=== PATIENT | female | born 1945 | race Caucasian/White ===

== ENCOUNTER → 2017-07-24 | Outpatient (CLI) | payer OTHER ==
[~2017-07-24] MED LIST: ALLERGY SHOTS; DICLOFENAC SODI75 M1 PO; IBUPROFEN 800800 M1 PO; LIPITOR20 MG PO; NABUMETONE 500500 M1 PO; NEURONTIN 300300 M1 PO; NEXIUM 40 MG CA40 M1 PO; SYMBICORT160 MCG/4. INH
== END ==
LOC: RAD 07-19 00:25
DX: Z12.31 Encounter for screening mammogram for malignant neoplasm of breast (principal)

== ENCOUNTER → 2018-07-24 | Outpatient (CLI) | payer OTHER | LOC: RAD 12:47 | DX: Z12.31 Encounter for screening mammogram for malignant neoplasm of breast (principal) ==

== ENCOUNTER → 2019-08-07 | Outpatient (CLI) | payer OTHER | LOC: RAD 07-25 09:49 → BC 10:36 | DX: Z12.31 Encounter for screening mammogram for malignant neoplasm of breast (principal) ==

== ENCOUNTER → 2019-11-12 | Outpatient (CLI) | payer OTHER ==
[~2019-11-12] VITALS: Ht 165.1 cm; Wt 65.8 kg
[~2019-11-12] MED LIST changes: +ADIPEX-P37.5 MG PO; +ADVAIR 250-501 EACH INH; +CELEBREX 200 M200 M1 PO; +OMEPRAZOLE 20 M20 M1 PO; +SINGULAIR 10 MG10 MG PO
[2019-11-12 14:47] VITALS: BP 133/89
--- NOTE | 2019-11-12 15:19 | NUR ---
Pain Clinic Assessment: 1. History of Osteoarthritis: Left Lower Extremity Left Upper Extremity Right Lower Extremity Right Upper Extremity * "EVERYWEHRE" History of Rheumatoid Arthritis: Not Applicable 2. Height: 5 ft. 5 in. 165.1 cm. Weight: 145.0 lb. oz. 65.772 kg. Patient's BMI: 24.1 3. Vital Signs: BP: 133/89 Pulse: 78 Resp: 14 Temp: 02 Sat: 100 ECG Mon: 4. Pain Intensity: "0 NOW, 10 AT TIMES." 5. Fall Risk: Dizziness: N Needs help standing or walking: N Fallen in the last 3 months: N Fall risk comments: 6. Patient on Blood Thinner: None 7. History of Hypertension: N 8. Opioid Therapy greater than 6 weeks: N Opiate Contract Signed: 9. Risk Assessment Tool Provided: 10. Functional Assessment Tool: 11. Recreational Drug Use: Never Drug Type: Tobacco Use: Never Smoker Tobacco Type: Amount or Packs/day: How Many Years: Alcohol Use: Yes Frequency: Weekly Quant: 2 BEERS
--- NOTE | 2019-11-18 09:19 | HPC ---
[facility] [place] [address] PAIN MANAGEMENT CONSULTATION Name: MURPHY MUSE Room #: REG JL [place].#: [id number] Admission: 11/12/19 Attend Phys: Hunter Tariq DO Discharge: Date of : 45 Report #: [id number] THIS REPORT FOR: cc: Heath Beltrán MD, Mark S. MD Johnson, James E. DO ~ DATE OF SERVICE: 11/12/2019 REFERRING PHYSICIAN: Heath Beltrán MD CHIEF COMPLAINT: Low back pain, left lower extremity pain with paresthesias. HISTORY OF PRESENT ILLNESS: As you know, the patient is a pleasant 74-year-old female referred to our service for suspected lumbar radiculopathy. The patient states her pain began way back in "1999." The patient denies injury or trauma that may have led to symptom development. She has "just been putting up with her pain" until just recently where her symptoms began to progress. She is now experiencing pain radiating down the leg. She was found to have changes of the lumbar spine at the L4-L5 level consistent with the bilateral nature of the patient's symptoms, left greater than right. She was referred to our clinic to discuss options for treatment. The patient indicates today the pain is periodic. She describes the pain as stabbing with intermittent numbness and tingling. Places current pain score anywhere from 0-10/10, daily average at 0-10/10, worst pain has been 10/10. The patient states that bending and ambulating tends to exacerbate symptoms, sitting tends to improve pain. She has been referred to our service to discuss treatment options for suspected lumbar radiculopathy. PAST MEDICAL HISTORY: 1. Hypothyroidism. 2. Dyslipidemia. 3. Gastroesophageal reflux disease. 4. Osteoarthritis. 5. Degenerative joint disease. PAST SURGICAL HISTORY: 1. Lumpectomy, 1999. 2. Rotator cuff repair, 2013. SOCIAL HISTORY: The patient reports she is a nonsmoker. She denies IV or illicit drug use. Admits to approximately 2 alcohol beverages per week. She is retired, retired years ago. She is unaccompanied at today's visit. She is not receiving workmen's compensation nor is she trying to obtain disability benefits. She is not in litigation in regards to pain. [address] [address] PAIN MANAGEMENT CONSULTATION Name: MURPHY MUSE [facility] [id number] Admission: 11/12/19 Attend Phys: Hunter Tariq DO Discharge: Date of : 45 Report #: [id number] REVIEW OF SYSTEMS: Positive for wearing corrective eyewear, glaucoma, hearing loss with tinnitus, chronic sinus problems with rhinitis, frequent and recurrent coughs, intrinsic lung disease, heat and cold intolerance. All other review of systems negative per 12-point review of systems, and those listed in history of present illness. Pain impact score is 32 of 70 indicating moderate interference of daily activities secondary to pain. ALLERGIES: CEFDINIR. CURRENT MEDICATIONS: Advair 250/50 one puff b.i.d., montelukast sodium 10 mg once a day, omeprazole 20 mg per day, atorvastatin 20 mg per day, diclofenac sodium 75 mg once a day. IMAGING: MRI lumbar spine obtained on 10/31/2019 shows marked left convexity of the lumbar spine involving lumbar disks and facets, very similar to findings from 2018. Central canal stenosis noted at L4-L5 with closure of the canal to 0.7 cm. There is severe to marked left lateral recess stenosis secondary to her marked convexity. There is marked left neural foraminal stenosis, which is stable at the L5-S1 level and moderate facet arthropathy noted at this L5 level as well. PQRS: The patient has known arthritic changes of the bilateral upper extremities involving the shoulders, elbows, bilateral knees and hips. No rheumatoid arthritis. She is placing current pain score anywhere from 0-10/10. She is not a fall risk, has not had a fall in last 3 months. She is not on blood thinners, but is treated for dyslipidemia. She is not on opioids, has a low opioid addiction potential. Pain impact score is 32/70, moderate interference of daily activities secondary to pain. PHYSICAL EXAMINATION: VITAL SIGNS: Blood pressure 133/89, pulse is 78, respiratory rate 14 and unlabored. The patient is 100% on room air. Height 5 feet 5 inches tall, weight 145 pounds, BMI calculated 24.1. GENERAL: Well-developed, well-nourished, well-hydrated 74-year-old female, appears stated age, pain is rated anywhere from 0-10/10. HEENT: Normocephalic, atraumatic. Pupils equal, round and reactive. Extraocular muscles are intact. NEUROLOGIC: Speech fluent. The patient deemed a good historian. LUNGS: Decreased breath sounds bilaterally. There is prolonged expiratory phase and some wheezing noted at the bases. CARDIOVASCULAR: Regular. No appreciable gallop, no rub. ABDOMEN: Soft, nontender. EXTREMITIES: Show no clubbing, no cyanosis, no edema. [facility] [address] [place] [address] PAIN MANAGEMENT CONSULTATION Name: MURPHY MUSE Room #: REG JL Curtis#: [id number] Admission: 11/12/19 Attend Phys: Hunter Tariq DO Discharge: Date of : 45 Report #: [id number] MUSCULOSKELETAL: Lower extremity strength equal and symmetrical 5/5, intact to light touch from L1 through S2 dermatomes. Seated straight leg raising negative. Supine straight leg raising positive on the left. Garett's test is negative. Modified Gaenslen's positive for axial low back pain. Ankle clonus negative. Babinski is negative. Lumbar provocation testing is met with a slight increase in axial back pain directly over the facet joints of the lower lumbar spine. ASSESSMENT: 1. Symptomatic lumbar radiculopathy. 2. Central canal stenosis of the lumbar spine. 3. Displacement of lumbar intervertebral disk with radiculopathy. 4. Lumbosacral spondylosis with radiculopathy. 5. Facet arthropathy of the lumbar spine. 6. Neural foraminal stenosis of the lumbar spine. 7. Chronic intractable pain. PLAN: 1. The patient has been referred to our service to discuss treatment options for suspected lumbar radiculopathy. The patient and I discussed at length today the treatment options for lumbar radicular symptoms due to central canal stenosis. She does have foraminal stenosis noted at 2 levels, but the bilateral nature of her symptoms would be more from the central canal and not from the neural foraminal stenosis noted only on the left side. We discussed with the patient the treatment options today and the following was discussed with the patient. We discussed physical therapy, stretching exercises, core strengthening and a concerted effort at weight loss. We discussed medication management with the addition of neuropathic pain medications to address pain issues. We discussed lumbar epidural injection under fluoroscopic guidance for which the patient was referred to our clinic. We also discussed spinal cord stimulator therapy and ultimately surgical decompression. After reviewing the risks and benefits of all proposed treatment options, the patient chose to move forward with the lumbar epidural injection under fluoroscopic guidance. Due to third republican payer restrictions, authorization has to be obtained before the patient could undergo a lumbar epidural injection. Authorization could take anywhere from 4-7 working days. Again, we will be getting this process immediately. Once this authorization has been obtained, we will have the patient return to undergo the first in a series of requested epidural injections. 2. No medication changes made at today's visit. The patient will continue current medical therapy as previously prescribed. 3. We will be sending the patient for physical therapy 3 times a week for 6 weeks. We feel this would be quite beneficial for the patient for strengthening [address] [address] PAIN MANAGEMENT CONSULTATION Name: MURPHY MUSE Room #: REG CLI Kirsten#: [id number] Admission: 11/12/19 Attend Phys: Hunter Tariq DO Discharge: Date of : 45 Report #: [id number] and balance. She will begin this process at her earliest convenience. 4. We will see the patient back in followup visit once we have achieved authorization for the patient to undergo a lumbar epidural injection under fluoroscopic guidance at the L5-S1 level to address the L4-L5 central canal stenosis. 5. We wish to thank Dr. Heath Beltrán for the opportunity to see this patient in consultation. We will keep you apprised of her response to treatment as we address lumbar radicular symptoms secondary to central canal stenosis. Again, we wish to thank you for the opportunity to see the patient in consultation. <ELECTRONICALLY SIGNED> By: Hunter Tariq DO 11/18/19 0919 1105 1227 Hunter Tariq DO /nt
== END ==
LOC: PAIN 07:02
PROVIDERS: ATTEND Anesthesiology Pain Medicine
DX: M54.5 Low back pain (principal); M79.605 Pain in left leg; R20.2 Paresthesia of skin; E03.9 Hypothyroidism, unspecified; E78.5 Hyperlipidemia, unspecified; K21.9 Gastro-esophageal reflux disease without esophagitis; M19.90 Unspecified osteoarthritis, unspecified site; Z88.5 Allergy status to narcotic agent; Z79.899 Other long term (current) drug therapy

== ENCOUNTER → 2019-11-18 | Outpatient (CLI) | payer OTHER ==
[~2019-11-18] VITALS: Ht 165.1 cm; Wt 65.8 kg
[2019-11-18 14:01] VITALS: BP 141/94
--- NOTE | 2019-11-18 14:13 | NUR ---
Pain Clinic Assessment: 1. History of Osteoarthritis: Left Lower Extremity Left Upper Extremity Right Lower Extremity Right Upper Extremity * "EVERYWEHRE" History of Rheumatoid Arthritis: Not Applicable 2. Height: 5 ft. 5 in. 165.1 cm. Weight: 145.0 lb. oz. 65.772 kg. Patient's BMI: 24.1 3. Vital Signs: BP: 141/94 Pulse: 81 Resp: 14 Temp: 02 Sat: 98 ECG Mon: 4. Pain Intensity: 1 5. Fall Risk: Dizziness: N Needs help standing or walking: N Fallen in the last 3 months: N Fall risk comments: 6. Patient on Blood Thinner: None 7. History of Hypertension: N 8. Opioid Therapy greater than 6 weeks: N Opiate Contract Signed: 9. Risk Assessment Tool Provided: 10. Functional Assessment Tool: 11. Recreational Drug Use: Never Drug Type: Tobacco Use: Never Smoker Tobacco Type: Amount or Packs/day: How Many Years: Alcohol Use: Yes Frequency: Quant:
--- NOTE | 2019-11-19 11:38 | HPC ---
[facility] [place] [address] [address] [place] [address] PAIN MANAGEMENT CONSULTATION Name: MURPHY MUSE Room #: REG JL AguilarLissyTimLissy#: [id number] Admission: 11/18/19 Attend Phys: Hunter Tariq DO Discharge: Date of : 45 Report #: [id number] THIS REPORT FOR: cc: Heath Beltrán MD, Mark S. MD Johnson, James E. DO ~ DATE OF SERVICE: 11/18/2019 REFERRING PHYSICIAN: Dr. Heath Beltrán CHIEF COMPLAINT: Low back pain, left lower extremity pain with paresthesias. HISTORY OF PRESENT ILLNESS: As you know, the patient is a very pleasant 74-year-old female referred to our service for suspected lumbar radiculopathy. She was seen in consultation per the request of Dr. Heath Beltrán on 11/12/2019. At that appointment she was diagnosed with symptomatic lumbar radiculopathy secondary to central canal stenosis of the lumbar spine. She was advised of the treatment options we have available for lumbar radiculopathy including physical therapy, medication management, epidural injections, spinal cord stimulator therapy and surgical options. After reviewing risks and benefits of all proposed treatment options, the patient chose to begin with an epidural injection under fluoroscopic guidance. She also wishes to start physical therapy. She was established today's appointment to undergo the first in a series of lumbar epidural injections as authorization had to be obtained before the patient could undergo a lumbar epidural injection. We have received this authorization and the patient returns to undergo the epidural injection. She has not started her physical therapy to date, but has plans to start this . She returns today for the first in the series of lumbar epidural injections. ALLERGIES: CEFDINIR. CURRENT MEDICATIONS: Advair, montelukast sodium, omeprazole, atorvastatin, diclofenac. SOCIAL HISTORY: The patient reports she is a nonsmoker. Denies IV or illicit drug use. Admits to approximately 2 alcohol beverages per week. She is retired, retired years ago, unaccompanied at today's visit. IMAGING: There is no new imaging available. PQRS: The patient has known arthritic changes of the bilateral upper extremities involving the shoulders, elbows and cervical spine. She also suffers from osteoarthritic changes of bilateral knees, bilateral hips and lumbar spine. She has no diagnosis of rheumatoid arthritis[place] [address] PAIN MANAGEMENT CONSULTATION Name: MURPHY MUSE Room #: REG [facility]#: [id number] Admission: 11/18/19 Attend Phys: Hunter Tariq DO Discharge: Date of : 45 Report #: [id number] pain intensity today at around 1/10. She is not a fall risk, has not had a fall in last 3 months. She is not on blood thinners nor is she treated for hypertension. She is not on any opioids and has an extremely low opioid addiction potential based on our assessment tool. Pain impact is 32/70, moderate interference of daily activities secondary to pain. PHYSICAL EXAMINATION: VITAL SIGNS: Blood pressure 141/94, pulse 81, respiratory rate 14 and unlabored. The patient is 98% on room air. Height 5 feet 5 inches tall, weight 145 pounds, BMI calculated 24.1. GENERAL: Well-developed, well-nourished, well-hydrated 74-year-old scoliotic female appearing stated age, placing current pain score 1/10. HEENT: Normocephalic, atraumatic. Pupils equal, round and reactive. EXTREMITIES: Show no clubbing, no cyanosis, no edema. MUSCULOSKELETAL: Lower extremity strength appears equal and symmetrical 5/5, intact to light touch from L1 through S2 dermatomes. Seated straight leg raising negative. Supine straight leg raising remains positive left. ASSESSMENT: 1. Symptomatic lumbar radiculopathy. 2. Central canal stenosis of lumbar spine. 3. Displacement of lumbar intervertebral disk with radiculopathy. 4. Lumbosacral spondylosis with radiculopathy. 5. Neural foraminal stenosis of lumbar spine. 6. Facet arthropathy of the lumbar spine. 7. Chronic intractable pain. PLAN: 1. The patient has returned today in followup visit having received authorization to undergo the first in a series of lumbar epidural injections under fluoroscopic guidance to address lumbar radicular pain. The patient has been advised of the risks and the benefits of this procedure. These risks include but are not necessarily limited to bleeding, bruising, infection, worsening pain, no relief of pain, also risk of temporary or permanent muscle weakness, temporary or permanent nerve damage, possible paralysis and . The patient states she understood and wished to proceed. 2. No medication changes made at today's visit. The patient will continue current medical therapy as previously prescribed. 3. We will see the patient back in followup visit on an as needed basis for possible next in the series of lumbar epidural injections. We have made the patient an appointment back in 30 days to discuss this further. 4. The patient will start physical therapy starting of this week. She will continue physical therapy 3 times a week for at least 4 weeks if not, possibly up to 6 weeks. PROCEDURE NOTE: [address] [address] PAIN MANAGEMENT CONSULTATION Name: MURPHY MUSE Room #: REG CLKeshia Curtis#: [id number] Admission: 11/18/19 Attend Phys: Hunter Tariq DO Discharge: Date of : 45 Report #: [id number] DESCRIPTION OF PROCEDURE: L5-S1 left parasagittal epidural steroid injection under fluoroscopic guidance. This is the first procedure of the first series that the patient is undergoing. After obtaining written consent, the patient was taken back to the fluoroscopy suite, placed in a prone position with pillow under the abdomen to decrease lumbar lordosis. The skin overlying the lumbosacral area was then prepped and draped in aseptic fashion. The L5-S1 vertebral interspace was then identified by AP fluoroscopy. The skin and subcutaneous tissue overlying the target site of injection was anesthetized with 3 mL 1% lidocaine. A 20-gauge 3-1/2 inch Tuohy needle was then advanced under fluoroscopic guidance towards the epidural space using a left parasagittal approach approach. The epidural space was identified using loss of resistance to air technique. After negative aspiration for heme or cerebrospinal fluid, a total of 1 mL of Omnipaque was injected. A lumbar epidurogram was confirmed using both AP and lateral fluoroscopy. After negative aspiration for heme or cerebrospinal fluid, 5 mL of a solution containing 2 mL 40 mg per mL, 80 mg total triamcinolone along with 3 mL of lidocaine 1% was injected in increments. Contrast spread was noted in posterior epidural space. The needle was then retracted approximately half way and needle tract flushed with of 1 mL of 1% lidocaine. Needle was then removed. There were no apparent sensory or motor deficits in the lower extremity following the procedure. A sterile bandage was placed over the injection site. The heart rate, pulse, oximetry and blood pressure were continuously monitored after the procedure. There were no apparent complications. The patient tolerated the procedure well and was carefully escorted to the recovery room in stable condition. There were no apparent complications. After meeting discharge criteria, the patient was then discharged home. <ELECTRONICALLY SIGNED> By: Hunter Tariq DO 11/19/19 1138 1515 1734 Hunter Tariq DO /nt
== END ==
LOC: PAIN 06:52
PROVIDERS: ATTEND Anesthesiology Pain Medicine
DX: M51.16 Intervertebral disc disorders with radiculopathy, lumbar region (principal); M47.27 Other spondylosis with radiculopathy, lumbosacral region; M47.26 Other spondylosis with radiculopathy, lumbar region; M48.061 Spinal stenosis, lumbar region without neurogenic claudication; G89.29 Other chronic pain; Z98.890 Other specified postprocedural states; Z79.899 Other long term (current) drug therapy; Z88.8 Allergy status to other drugs, medicaments and biological substances

== ENCOUNTER → 2020-08-03 | Outpatient (CLI) | payer OTHER | LOC: RAD 08:52 | PROVIDERS: ATTEND Pediatrics | DX: J43.2 Centrilobular emphysema (principal); M41.85 Other forms of scoliosis, thoracolumbar region ==

== ENCOUNTER → 2020-08-11 | Outpatient (CLI) | payer OTHER | LOC: BC 11:57 | PROVIDERS: ATTEND Internal Medicine Rheumatology | DX: Z12.31 Encounter for screening mammogram for malignant neoplasm of breast (principal) ==

== ENCOUNTER → 2020-09-17 | Outpatient (CLI) | payer OTHER ==
--- NOTE | ~2020-09-17 | PFR/MVV ---
[facility] [place] [address] PULMONARY FUNCTION MVV/REPORT Name: MURPHY MUSE Room #: REG [facility].#: [id number] Admission: 09/17/20 Attend Phys: Chicho Graf MD Discharge: Date of : 45 Report #: [id number] THIS REPORT FOR: //name// >> SPIROMETRY: (BTPS) Height: in cm Weight: lbs kg Exam Date: PRE-RX POST-RX PRED BEST %PRED BEST %PRED %CHG FVC LITERS . . . . . . FEV1 LITERS . . . . . . FEV1/FVC % . . . . . . KND42-92% L/Sec . . . . . . PEF L/SEC . . . . . . FEF50/FIF50 UNITLESS . . . . . . MVV L/Min . . . f 1/Min . . . >> LUNG VOLUMES: (BTPS) PRE-RX POST-RX PRED AVG %PRED AVG %PRED %CHG VC Liters . . . . . . TLC Liters . . . . . . RV Liters . . . . . . RV/TLC % . . . . . . FRC PL Liters . . . . . . FRC N2 Liters . . . . . . ERV Liters . . . . . . IC Liters . . . . . . >> DIFFUSION: DLCO ml/Min/mmHg . . . . . . DL Marcial ml/Min/mmHg . . . . . . DLCO/VA ml/Min/mmHg . . . . . . VA Liters . . . . . . COMMENTS: COMMENTS: >> RESISTANCE: [facility] [address] [place] [address] PULMONARY FUNCTION MVV/REPORT Name: MURPHY MUSE Room #: REG [facility]#: [id number] Admission: 09/17/20 Attend Phys: Chicho Graf MD Discharge: Date of : 45 Report #: [id number] PRE-RX PRED AVG %PRED Raw Total cmH20/L/Sec . . . Raw Insp cmH20/L/Sec . . . Raw Exp cmH20/L/Sec . . . Raw cmH20/L/Sec . . . Gaw L/Sec/cmH20 . . . sRaw cmH20 Sec . . . sGaw l/cmH20 Sec . . . Vtq Liters . . . # = OUTSIDE 95% CONFIDENCE INTERVAL CALIBRATION: PRED: 3.00 ACTUAL: EXP 3.01 INSP 3.02 [facility]-OL03-02 [facility] N-1804-4 >> INTERPRETATION/IMPRESSION: DATE OF SERVICE: 09/18/2020 PULMONARY FUNCTION STUDY SPIROMETRY: FEV1 is 2.42 liters (123%), FVC is 3.19 liters (113%), FEV1/FVC ratio is 76%. Postbronchodilator therapy with no significant response. LUNG VOLUMES: Total lung capacity is 5.24 liters (105%). Diffusing capacity is 121%. IMPRESSION: Pulmonary function studies are consistent with normal pulmonary flow. There is no obstructive airflow defect. There is no significant response to bronchodilator therapy. Diffusing capacity is slightly increased and normal. By: Chicho Graf MD /nt
== END ==
LOC: PUL 10:54
PROVIDERS: ATTEND Pediatrics
DX: R05 Cough (principal); Z20.822 Contact with and (suspected) exposure to COVID-19

== ENCOUNTER → 2021-01-11 | Outpatient (CLI) | payer OTHER ==
[~2021-01-11] VITALS: Ht 165.1 cm; Wt 70.9 kg
[~2021-01-11] MED LIST changes: +[UNRECOGNIZED DRUG - OTHER]
[2021-01-11 12:45] VITALS: BP 127/88
--- NOTE | 2021-01-11 12:58 | NUR ---
Pain Clinic Assessment: 1. History of Osteoarthritis: Left Lower Extremity Left Upper Extremity Right Lower Extremity Right Upper Extremity * "EVERYWEHRE" History of Rheumatoid Arthritis: Not Applicable 2. Height: 5 ft. 5 in. 165.1 cm. Weight: 156.2 lb. oz. 70.852 kg. Patient's BMI: 26.0 3. Vital Signs: BP: 127/88 Pulse: 82 Resp: 16 Temp: 02 Sat: 99 ECG Mon: 4. Pain Intensity: 1-2 5. Fall Risk: Dizziness: N Needs help standing or walking: N Fallen in the last 3 months: N Fall risk comments: 6. Patient on Blood Thinner: None 7. History of Hypertension: N 8. Opioid Therapy greater than 6 weeks: N Opiate Contract Signed: 9. Risk Assessment Tool Provided: 10. Functional Assessment Tool: 11. Recreational Drug Use: Never Drug Type: Tobacco Use: Never Smoker Tobacco Type: Amount or Packs/day: How Many Years: Alcohol Use: No Frequency: Quant:
--- NOTE | 2021-01-19 09:51 | HPC ---
[facility] [place] [address] PAIN MANAGEMENT CONSULTATION Name: MURPHY MUSE Room #: REG [facility] [place].#: [id number] Admission: 01/11/21 Attend Phys: Hunter Tairq DO Discharge: Date of : 45 Report #: [id number] THIS REPORT FOR: cc: Heath Beltrán MD, Mark S. MD Johnson, James E. DO ~ cc: Heath Beltrán MD DATE OF SERVICE: 01/11/2021 DATE OF SERVICE: 01/11/2021. CHIEF COMPLAINT: Low back pain, bilateral lower extremity pain with paresthesias. HISTORY OF PRESENT ILLNESS: As you know, the patient is a 75-year-old female who reports longstanding history of low back pain, left lower extremity pain with paresthesias with intermittent right lower extremity pain with paresthesias. The patient states the pain has been chronic for years. She describes the pain as numbness, tingling, stabbing and constant sensation. She describes pain at a level of about 2/10 at present. Pain is exacerbated with bending, movement of any kind, standing for long periods of time, sitting and repositioning tends to be the only thing that improves her symptoms. She did undergo a lumbar epidural injection in October 2019 per the request of the referring physician, Dr. Beltrán reporting improvement in symptoms of greater than 100%, lasting for months. She returns today in followup visit to begin the process of authorization to undergo the next in the series of lumbar epidural injections to address lumbar radicular pain. The patient reports no injury or trauma that led to symptom reoccurrence. She is not on any medications that would preclude the patient from undergoing an epidural injection. ALLERGIES: CEFDINIR. CURRENT MEDICATIONS: Celecoxib 200 mg twice a day, omeprazole 20 mg once a day, atorvastatin 20 mg once a day, montelukast sodium 10 mg once a day. SOCIAL HISTORY: The patient is a nonsmoker. Denies IV or illicit drug use. Admits approximately 2 alcohol beverages per week. She is retired, retired years ago, unaccompanied at today's visit. IMAGING: No new imaging available. PQRS: The patient has known arthritic changes of the upper extremities including the shoulders, elbows, cervical spine and hands. Also, lumbar arthritic changes, bilateral knee arthritic changes and bilateral hip arthritic changes. She does not carry a diagnosis of rheumatoid arthritis. She is placing current pain score at about 1-2/10. She is not a fall risk, has not had [address] [address] PAIN MANAGEMENT CONSULTATION Name: MURPHY MUSE Room #: REG [facility].#: [id number] Admission: 01/11/21 Attend Phys: Hunter Tariq DO Discharge: Date of : 45 Report #: [id number] a fall in last 3 months. She is not on blood thinners nor is she treated for hypertension. She is not on chronic opioids, has a low opiate addiction potential. Pain impact is 32/70, moderate interference of daily activities secondary to pain. PHYSICAL EXAMINATION: VITAL SIGNS: Blood pressure 141/94, pulse 81, respiratory rate 14 and unlabored. The patient 98% on room air. Height 5 feet 5 inches tall, weight 145 pounds, BMI calculated 24.1. GENERAL: Well-developed, well-nourished, well-hydrated 75-year-old female appearing stated age, pain is rated today at around 1-2/10. HEENT: Normocephalic, atraumatic. Pupils are round and responsive. She is wearing a mask in compliance with COVID-19 regulations. EXTREMITIES: Show no clubbing, no cyanosis. No appreciable edema. MUSCULOSKELETAL: Lower extremity strength remains symmetrical with decondition 5/5 strength. Intact to light touch from L1 through S2 dermatomes. Seated straight leg raising negative. Supine straight leg raising is positive on the left. Garett's test is negative. Modified Gaenslen's positive for axial back pain. Gait mildly antalgic favoring left lower extremity over right. ASSESSMENT: 1. Symptomatic lumbar radiculopathy. 2. Severe central canal stenosis of lumbar spine. 3. Displacement of lumbar intervertebral disk with radiculopathy. 4. Neural foraminal stenosis of lumbar spine. 5. Lumbosacral spondylosis with radiculopathy. 6. Facet arthropathy, lumbar spine. 7. Chronic intractable pain. PLAN: 1. The patient returns today in followup visit indicating good efficacy with the epidural injection provided on 11/18/2019. She reports near 100% improvement in overall pain lasting for months. She has delayed her return visit as concerns of COVID-19 virus escalated over the last year. She is now comfortable to return to our clinic. Returning today to begin the authorization process to undergo next in the series of lumbar epidural injections. I did advise the patient that her findings are consistent with lumbar radiculopathy. The fact that she received excellent benefit with a lumbar epidural injection in the past would make her an excellent candidate to continue this treatment option. She is agreeable to undergo a lumbar epidural injection. The patient was advised due to third republican payer restrictions authorization would have to be obtained for the patient to undergo a lumbar epidural injection. Authorization could take anywhere from 4-7 working days, will begin that process immediately. Once this authorization has been completed, we will have the patient return to undergo lumbar epidural injection under fluoroscopic [facility] [address] [place] [address] PAIN MANAGEMENT CONSULTATION Name: MURPHY MUSE [id number] Admission: 01/11/21 Attend Phys: Hunter Tariq DO Discharge: Date of : 45 Report #: [id number] guidance. 2. No medication changes made at today's visit. The patient will continue current medical therapy as prior prescribed. 3. We plan to see the patient back in followup visit to undergo lumbar epidural injection under fluoroscopic guidance once we have achieved authorization for the patient to do so. <ELECTRONICALLY SIGNED> By: Hunter Tariq DO 01/19/21 0951 [id number] Hunter Tariq DO /nt
== END | disposition home or self-care (01) ==
LOC: PAIN 12:05
PROVIDERS: ATTEND Anesthesiology Pain Medicine
DX: M51.16 Intervertebral disc disorders with radiculopathy, lumbar region (principal); M48.061 Spinal stenosis, lumbar region without neurogenic claudication; M47.27 Other spondylosis with radiculopathy, lumbosacral region; M47.26 Other spondylosis with radiculopathy, lumbar region; G89.29 Other chronic pain; M19.90 Unspecified osteoarthritis, unspecified site; Z98.890 Other specified postprocedural states; Z79.899 Other long term (current) drug therapy; Z88.8 Allergy status to other drugs, medicaments and biological substances

== ENCOUNTER → 2021-01-25 | Outpatient (CLI) | payer OTHER ==
[~2021-01-25] VITALS: Ht 165.1 cm; Wt 72.9 kg
[2021-01-25 08:42] VITALS: BP 145/88
--- NOTE | 2021-01-25 08:57 | NUR ---
Pain Clinic Assessment: 1. History of Osteoarthritis: Left Lower Extremity Left Upper Extremity Right Lower Extremity Right Upper Extremity * "EVERYWEHRE" History of Rheumatoid Arthritis: Not Applicable 2. Height: 5 ft. 5 in. 165.1 cm. Weight: 160.8 lb. oz. 72.938 kg. Patient's BMI: 26.8 3. Vital Signs: BP: 145/88 Pulse: 77 Resp: 16 Temp: 02 Sat: 98 ECG Mon: 4. Pain Intensity: 9 W/ACTIVITY 5. Fall Risk: Dizziness: N Needs help standing or walking: N Fallen in the last 3 months: N Fall risk comments: 6. Patient on Blood Thinner: None 7. History of Hypertension: N 8. Opioid Therapy greater than 6 weeks: N Opiate Contract Signed: 9. Risk Assessment Tool Provided: XAVIER 10. Functional Assessment Tool: 11. Recreational Drug Use: Never Drug Type: Tobacco Use: Never Smoker Tobacco Type: Amount or Packs/day: How Many Years: Alcohol Use: No Frequency: Quant:
--- NOTE | 2021-02-01 10:15 | HPC ---
[facility] [place] [address] PAIN MANAGEMENT CONSULTATION Name: MURPHY MUSE Room #: [facility] [id number] Admission: 01/25/21 Attend Phys: Hunter Tariq DO Discharge: Date of : 45 Report #: [id number] THIS REPORT FOR: cc: Heath Beltrán MD, Mark S. MD Johnson, James E. DO ~ cc: Heath Beltrán MD DATE OF SERVICE: 01/25/2021 REFERRING PHYSICIAN: Dr. Heath Beltrán. CHIEF COMPLAINT: Low back pain, left lower extremity pain with paresthesias. HISTORY OF PRESENT ILLNESS: As you know, the patient is a very pleasant 75-year-old female referred to our service for suspected lumbar radiculopathy. We saw the patient in consultation per the request of Dr. Heath Beltrán on 11/12/2019 with diagnosis of lumbar radiculopathy secondary to central canal stenosis. We discussed the treatment options at that visit and the patient ultimately underwent an epidural injection on 11/18/2019. She was lost to followup visit until her return on 01/11/2021 where she was complaining of recurrence of symptoms. We have obtained authorization for the patient to undergo the next in the series of epidural injections today. She denies injury or trauma or any changes in medication management since our last visit that would preclude her from undergoing a lumbar epidural injection today. ALLERGIES: CEFDINIR. CURRENT MEDICATIONS: Advair, montelukast sodium, omeprazole, atorvastatin and diclofenac. SOCIAL HISTORY: The patient denies tobacco use. Denies IV or illicit drug use. Admits to 2 alcohol beverages per week. She is retired, retired years ago, unaccompanied today. IMAGING: No new imaging available. PQRS: The patient has known arthritic changes of the cervical spine, bilateral shoulders, bilateral elbows and hands. Also, lumbar spine, bilateral hips and knees. She is not taking no treatment for rheumatoid arthritis. She is placing pain intensity today at 9/10. She is not a fall risk, has not had a fall in last 3 months. She is not on blood thinners nor she reportedly on medication for hypertension. She is not on opioids, has a low opioid addiction potential based on our assessment tool. Pain impact is moderate at 32 of 70. PHYSICAL EXAMINATION: VITAL SIGNS: Blood pressure 145/88, pulse is 77, respiratory rate 16 and [facility] [address] [place] [address] PAIN MANAGEMENT CONSULTATION Name: MURPHY MUSE Room #: REG [facility]#: [id number] Admission: 01/25/21 Attend Phys: Hunter Tariq DO Discharge: Date of : 45 Report #: [id number] unlabored. The patient is 98% on room air. Height 5 feet 5 inches tall, weight 160.8 pounds, BMI calculated 26.8. GENERAL: Well-developed, well-nourished, well-hydrated 75-year-old female appearing stated age, pain is rated anywhere from 9-10/10. HEENT: normocephalic, atraumatic. Pupils equal, round and responsive. She is wearing a mask in compliance with COVID-19 regulations. EXTREMITIES: Show no clubbing, no cyanosis and no appreciable edema. MUSCULOSKELETAL: Lower extremity strength is symmetrical again today 5/5 and intact to light touch from L1 through S2 dermatomes. Seated straight leg raising negative. Supine straight leg raising is positive on the left at approximately 60-degree angle. Ankle clonus negative. Babinski is negative. ASSESSMENT: 1. Symptomatic lumbar radiculopathy. 2. Central canal stenosis of lumbar spine. 3. Displacement of lumbar intervertebral disk with radiculopathy. 4. Lumbosacral spondylosis with radiculopathy. 5. Neural foraminal stenosis of lumbar spine. 6. Facet arthropathy, lumbar spine. 7. Chronic intractable pain. PLAN: 1. The patient returns today in followup visit requesting to undergo lumbar epidural injection under fluoroscopic guidance to address her 9/10 pain. We have received authorization for the patient to undergo the procedure. She has been advised of the risks and the benefits of this procedure. She states she understood and wished to proceed. 2. No medication changes made at today's visit. The patient will continue current medical therapy as prior prescribed. 3. We plan to see the patient back in followup visit on an as needed basis for the next in the series of epidural injections. We are hopeful the patient will once again see good and prolonged benefit with the epidural injection provided today. PROCEDURE NOTE DESCRIPTION OF PROCEDURE: L5-S1 left parasagittal epidural steroid injection under fluoroscopic guidance. After obtaining written consent, the patient was taken back to fluoroscopy suite, placed in prone position with pillow under abdomen to decrease lumbar lordosis. Skin overlying lumbosacral area prepped and draped in aseptic fashion. The L5-S1 vertebral interspace identified by AP fluoroscopy. Skin and subcutaneous tissue overlying target site injection anesthetized with 3 mL of 1% lidocaine. [address] [address] PAIN MANAGEMENT CONSULTATION Name: MURPHY MUSE Room #: REG [facility] [place]#: [id number] Admission: 01/25/21 Attend Phys: Hunter Tariq DO Discharge: Date of : 45 Report #: [id number] A 20 gauge 3-1/2 inch Tuohy needle advanced under fluoroscopic guidance towards the epidural space using a left parasagittal approach. Epidural space identified using loss of resistance to air technique. After negative aspiration for heme or cerebrospinal fluid, 1 mL of Omnipaque injected. Lumbar epidurogram was confirmed using both AP and lateral fluoroscopy. After negative aspiration for heme or cerebrospinal fluid, 5 mL solution containing 2 mL 40 mg per mL and 80 mg total triamcinolone along with 3 mL of lidocaine, 1% injected slowly. Needle retracted custodial flushed with 1 mL of 1% lidocaine, then removed. Sterile bandage placed over injection site. No new motor deficits present in lower extremity following procedure. The patient tolerated the procedure well, carefully escorted to recovery room in stable condition. No apparent complications. After meeting discharge criteria, the patient is discharged home. <ELECTRONICALLY SIGNED> By: Hunter Tariq DO 02/01/21 1015 [id number] [id number] Hunter Tariq DO /nt
== END | disposition home or self-care (01) ==
LOC: PAIN 08:01
PROVIDERS: ATTEND Anesthesiology Pain Medicine
DX: M51.16 Intervertebral disc disorders with radiculopathy, lumbar region (principal); M47.27 Other spondylosis with radiculopathy, lumbosacral region; M47.26 Other spondylosis with radiculopathy, lumbar region; M48.061 Spinal stenosis, lumbar region without neurogenic claudication; G89.29 Other chronic pain; M19.90 Unspecified osteoarthritis, unspecified site; Z98.890 Other specified postprocedural states; Z79.899 Other long term (current) drug therapy; Z88.8 Allergy status to other drugs, medicaments and biological substances

== ENCOUNTER → 2021-04-07 | Outpatient (CLI) | payer OTHER | LOC: RAD 08:26 | PROVIDERS: ATTEND Pediatrics | DX: U07.1 COVID-19 (principal); R06.02 Shortness of breath ==

== ENCOUNTER → 2021-05-03 | Outpatient (CLI) | payer OTHER ==
[~2021-05-03] VITALS: Ht 165.1 cm; Wt 74.4 kg
[2021-05-03 10:27] VITALS: BP 149/84
--- NOTE | 2021-05-03 10:37 | NUR ---
Pain Clinic Assessment: 1. History of Osteoarthritis: Left Lower Extremity Left Upper Extremity Right Lower Extremity Right Upper Extremity * "EVERYWEHRE" History of Rheumatoid Arthritis: Not Applicable 2. Height: 5 ft. 5 in. 165.1 cm. Weight: 164.0 lb. oz. 74.390 kg. Patient's BMI: 27.3 3. Vital Signs: BP: 149/84 Pulse: 86 Resp: 14 Temp: 02 Sat: 98 ECG Mon: 4. Pain Intensity: 10 5. Fall Risk: Dizziness: N Needs help standing or walking: N Fallen in the last 3 months: N Fall risk comments: 6. Patient on Blood Thinner: None 7. History of Hypertension: N 8. Opioid Therapy greater than 6 weeks: N Opiate Contract Signed: 9. Risk Assessment Tool Provided: LOW 10. Functional Assessment Tool: 11. Recreational Drug Use: Never Drug Type: Tobacco Use: Never Smoker Tobacco Type: Amount or Packs/day: How Many Years: Alcohol Use: Yes Frequency: Special Occasions Quant: 1-2
--- NOTE | 2021-05-04 08:11 | HPC ---
[facility] [place] [address] PAIN MANAGEMENT CONSULTATION Name: MURPHY MUSE Room #: REG [facility] [place].#: [id number] Admission: 05/03/21 Attend Phys: Hunter Tariq DO Discharge: Date of : 45 Report #: [id number] THIS REPORT FOR: cc: Heath Beltrán MD, Mark S. MD Johnson, James E. DO ~ cc: Heath Beltrán MD DATE OF SERVICE: 05/03/2021 REFERRING PHYSICIAN: Dr. Heath Beltrán CHIEF COMPLAINT: Low back pain, left lower extremity pain with paresthesias. HISTORY OF PRESENT ILLNESS: As you know, the patient is a very pleasant 76-year-old female referred to our service for suspected lumbar radiculopathy. We saw the patient in consultation at the request of Dr. Heath Beltrán on 11/12/2019, diagnosed with lumbar radiculopathy secondary to central canal stenosis. We discussed treatment options, the patient chose to begin with epidural injections. She underwent an epidural injection on 11/18/2019 with good benefit. We saw the patient back again in 12/2020 where she underwent the second in the series of lumbar epidural injections, once again excellent benefit. The patient reports 80% improvement in overall pain with that injection. She returns today in followup visit to begin the authorization process to undergo the next in the series of lumbar epidural injections to address recurrent pain for which she places pain today at 10/10. The patient denies injury or trauma that may have led to symptom reoccurrence. She denies any changes in medication management that would preclude her from undergoing an injection as quickly as possible. The patient reports pain begins in the low back, radiates to the left lower extremity. She has tried [id number] medications, rest, relaxation, with this recurrence of symptoms, this provided no benefit. She has returned today to begin the authorization process to undergo next in the series of lumbar epidural injections. ALLERGIES: CEFDINIR. CURRENT MEDICATIONS: Brexin 1 inhaled twice a day, Celecoxib 200 mg twice a day, omeprazole 20 mg once a day, atorvastatin 20 mg once a day. SOCIAL HISTORY: The patient denies tobacco use. Denies IV or illicit drug use. Admits to 2 alcohol beverages per week. She is retired, retired years ago, unaccompanied today. IMAGING: No new imaging available. PQRS: The patient has known arthritic changes of the cervical spine, bilateral shoulders, bilateral elbows and hands and lumbar spine, bilateral hips and [address] [address] PAIN MANAGEMENT CONSULTATION Name: MURPHY MUSE Room #: REG [facility].#: [id number] Admission: 05/03/21 Attend Phys: Hunter Tariq DO Discharge: Date of : 45 Report #: [id number] knees. No rheumatoid arthritis. The patient is placing current pain score at a 10/10. She is not a fall risk, has not had a fall in last 3 months. She is not on blood thinners nor is she treated for hypertension. She is on no opioids, but has a low opioid addiction potential based on assessment tool. Pain impact is 32 of 70, moderate interference of daily activities secondary to pain. PHYSICAL EXAMINATION: VITAL SIGNS: Blood pressure 149/84, pulse 86, respiratory rate 14 and unlabored. The patient 98% on room air. Height 5 feet 5 inches tall, weight 164 pounds, BMI calculated 27.3. GENERAL: Well-developed, well-nourished, well-hydrated 76-year-old female appearing stated age, pain is rated today 10/10. HEENT: Normocephalic, atraumatic. Pupils equal, round and responsive. Speech is fluent. She is wearing a mask in compliance with COVID-19 regulations and hospital policies. EXTREMITIES: Show no clubbing, no cyanosis. No appreciable edema. MUSCULOSKELETAL: Lower extremity strength is symmetrical again today 5/5. Seated straight leg raising is negative. Supine straight leg raising remains positive on the left. Garett's test is negative. Gait is antalgic favoring left lower extremity over right mildly. Ankle clonus negative. Babinski is negative. Deep tendon reflexes are symmetrical at patella and Achilles 1+/4. ASSESSMENT: 1. Symptomatic lumbar radiculopathy. 2. Central canal stenosis of lumbar spine. 3. Displacement of lumbar intervertebral disk with radiculopathy. 4. Lumbosacral spondylosis with radiculopathy. 5. Neural foraminal stenosis of lumbar spine. 6. Facet arthropathy of lumbar spine. 7. Chronic intractable pain. PLAN: 1. The patient returns today in followup visit requesting to undergo the next in the series of lumbar epidural injections to address recurrent lumbar radicular symptoms. The patient reported excellent benefit with previous injection that has provided about 80% improvement in overall pain until just recently where she has had a slow and progressive return of symptoms. She returns today requesting a lumbar epidural injection to build on success of previous intervention. She was advised that third democrat payer restrictions require authorization before the patient could undergo the procedure. We will obtain this authorization as quickly as possible having the patient return to undergo the epidural injection requested. I am hopeful we will have this completed quickly and we will have the patient return to undergo the injection very rapidly. 2. No medication changes made at today's visit. The patient will continue current medical therapy as prior prescribed. [facility] [address] [place] [address] PAIN MANAGEMENT CONSULTATION Name: MURPHY MUSE Room #: REG [facility].#: [id number] Admission: 05/03/21 Attend Phys: Hunter Tariq DO Discharge: Date of : 45 Report #: [id number] 3. We will see the patient back in followup visit once we have achieved the authorization for her to undergo a lumbar epidural injection under fluoroscopic guidance to build on success of previous intervention and provide analgesic benefit. <ELECTRONICALLY SIGNED> By: Hunter Tariq DO 05/04/21 0811 1130 [id number] Hunter Tariq DO /nt
== END | disposition home or self-care (01) ==
LOC: PAIN 06:59
PROVIDERS: ATTEND Anesthesiology Pain Medicine
DX: M51.16 Intervertebral disc disorders with radiculopathy, lumbar region (principal); M48.061 Spinal stenosis, lumbar region without neurogenic claudication; M47.27 Other spondylosis with radiculopathy, lumbosacral region; M47.26 Other spondylosis with radiculopathy, lumbar region; G89.29 Other chronic pain; M19.90 Unspecified osteoarthritis, unspecified site; Z98.890 Other specified postprocedural states; Z79.899 Other long term (current) drug therapy; Z88.8 Allergy status to other drugs, medicaments and biological substances

== ENCOUNTER → 2021-05-17 | Outpatient (CLI) | payer OTHER ==
[~2021-05-17] VITALS: Ht 165.1 cm; Wt 72.1 kg
[2021-05-17 14:11] VITALS: BP 158/106
--- NOTE | 2021-05-17 14:26 | NUR ---
Pain Clinic Assessment: 1. History of Osteoarthritis: Left Lower Extremity Left Upper Extremity Right Lower Extremity Right Upper Extremity * "EVERYWEHRE" History of Rheumatoid Arthritis: Not Applicable 2. Height: 5 ft. 5 in. 165.1 cm. Weight: 159.0 lb. oz. 72.122 kg. Patient's BMI: 26.5 3. Vital Signs: BP: 158/106 Pulse: 85 Resp: 16 Temp: 02 Sat: 99 ECG Mon: 4. Pain Intensity: 1 5. Fall Risk: Dizziness: N Needs help standing or walking: N Fallen in the last 3 months: N Fall risk comments: 6. Patient on Blood Thinner: None 7. History of Hypertension: N 8. Opioid Therapy greater than 6 weeks: N Opiate Contract Signed: 9. Risk Assessment Tool Provided: LOW 10. Functional Assessment Tool: 11. Recreational Drug Use: Never Drug Type: Tobacco Use: Never Smoker Tobacco Type: Amount or Packs/day: How Many Years: Alcohol Use: Yes Frequency: Daily Quant: 2
--- NOTE | 2021-05-18 07:55 | HPC ---
[facility] [place] [address] PAIN MANAGEMENT CONSULTATION Name: MURPHY MUSE Room #: REG JL Mont[place]Lissy#: [id number] Admission: 05/17/21 Attend Phys: Hunter Tariq DO Discharge: Date of : 45 Report #: [id number] THIS REPORT FOR: cc: eHath Beltrán MD, Mark S. MD Johnson, James E. DO ~ cc: Heath Beltrán MD DATE OF SERVICE: 05/17/2021 CHIEF COMPLAINT: Low back pain, left lower extremity pain with paresthesias. HISTORY OF PRESENT ILLNESS: As you know, the patient is a very pleasant 73-year-old female referred to our service to address lumbar radiculopathy. The patient has undergone lumbar epidural injections under fluoroscopic guidance with good benefit. She has had 2 epidural injections over the past year with benefit with each injection. The most recent, according to the patient, gave improvement in symptoms of greater than 80%, lasting for multiple months. Unfortunately, her symptoms have reoccurred. She returns today in followup visit with low back pain, left lower extremity pain consistent with her chronic lumbar radiculopathy. She denies injury or trauma that may have led to symptom reoccurrence. She has had no changes in medication management that would preclude her from undergoing the epidural injection requested today. ALLERGIES: CEFDINIR. CURRENT MEDICATIONS: See chart. SOCIAL HISTORY: The patient denies tobacco use. Denies IV or illicit drug use. Admits 2 alcohol beverages a minimum per week. She is retired, retired years ago, unaccompanied today. IMAGING: No new imaging available. PQRS: The patient has known arthritic changes of cervical spine, bilateral shoulders, bilateral elbows, hands, lumbar spine, bilateral hips and knees. She reports no history of rheumatoid arthritis. She is placing current pain score 10/10. She is a fall risk, but has not had a fall in last 3 months. She is on no blood thinners, not treated for hypertension. She is not on any chronic opioids, has a low opioid addiction potential based on assessment tool. Pain impact is 32/70, moderate interference of daily activities secondary to pain. PHYSICAL EXAMINATION: VITAL SIGNS: Blood pressure 158/106, pulse is 85, respiratory rate 16 and unlabored. The patient 99% on room air. Height 5 feet 5 inches tall, weight 159 pounds, BMI calculated 26.5. GENERAL: A well-developed, well-nourished, well-hydrated 76[place] [address] PAIN MANAGEMENT CONSULTATION Name: MURPHY MUSE Room #: REG [facility].#: [id number] Admission: 05/17/21 Attend Phys: Hunter Tariq DO Discharge: Date of : 45 Report #: [id number] appearing stated age, pain is rated today up to 10/10 depending on activity. HEENT: Normocephalic, atraumatic. Pupils equal, round and responsive. She is wearing a mask in compliance with COVID-19 regulations and hospital policies. EXTREMITIES: Show no clubbing, no cyanosis and no appreciable edema. MUSCULOSKELETAL: Lower extremity strength equal and symmetrical. Seated straight leg raising negative. Supine straight leg raising is positive left. Garett's test negative. Gait is antalgic, favoring left lower extremity. Muscle bulk and tone equal and symmetrical in lower extremities. ASSESSMENT: 1. Symptomatic lumbar radiculopathy. 2. Central canal stenosis of lumbar spine. 3. Displacement of lumbar intervertebral disk with radiculopathy. 4. Lumbosacral spondylosis with radiculopathy. 5. Neural foraminal stenosis of lumbar spine. 6. Facet arthropathy of lumbar spine. 7. Chronic intractable pain. PLAN: 1. The patient returns today in followup visit requesting to undergo lumbar epidural injection under fluoroscopic guidance to address lumbar radicular pain. The patient has been advised of the risks and the benefits of this type of procedure. These risks include but are not necessarily limited to bleeding, bruising, infection, worsening pain, no relief of pain, also risk of temporary or permanent muscle weakness, temporary or permanent nerve damage, possible paralysis, post-dural puncture headache and . The patient states understood and wished to proceed. 2. No medication changes made at today's visit. The patient will continue current medical therapy as prior prescribed. 3. Plan to see the patient back in followup visit on an as needed basis for the next in the series of lumbar epidural injections. PROCEDURE NOTE DESCRIPTION OF PROCEDURE: L5-S1 interlaminar epidural steroid injection under fluoroscopic guidance. After obtaining written consent, the patient was taken back to fluoroscopy suite, placed in prone position with pillow under abdomen to decrease lumbar lordosis. Skin overlying lumbosacral area then prepped and draped in aseptic fashion. The L5-S1 vertebral interspace identified by AP fluoroscopy. Skin and subcutaneous tissue overlying target site injection anesthetized with 3 mL 1% lidocaine. A 20 gauge 3-1/2 inch Tuohy needle advanced under fluoroscopic guidance towards the epidural space using a left paramedian approach. Epidural space identified [address] [address] PAIN MANAGEMENT CONSULTATION Name: MURPHY MUSE Room #: REG JL Curtis#: [id number] Admission: 05/17/21 Attend Phys: Hunter Tariq DO Discharge: Date of : 45 Report #: [id number] using loss of resistance to air technique. After negative aspiration for heme or cerebrospinal fluid, 1 mL of Omnipaque injected. Lumbar epidurogram was confirmed using both AP and lateral fluoroscopy. After negative aspiration for heme or cerebrospinal fluid, 5 mL solution containing 2 mL 40 mg per mL 80 mg total triamcinolone along with 3 mL of lidocaine, 1% injected slowly. Needle retracted usp flushed with 1 mL of 1% lidocaine and removed. Sterile bandage placed over injection site. No new motor deficits present in the lower extremities following procedure. The patient tolerated the procedure well. Carefully escorted to recovery room in stable condition. No apparent complications. After meeting our discharge criteria, the patient discharged home. <ELECTRONICALLY SIGNED> By: Hunter Tariq DO 05/18/21 [id number] Hunter Tariq DO /nt
== END | disposition home or self-care (01) ==
LOC: PAIN 10:50
PROVIDERS: ATTEND Anesthesiology Pain Medicine
DX: M51.16 Intervertebral disc disorders with radiculopathy, lumbar region (principal); M47.27 Other spondylosis with radiculopathy, lumbosacral region; M47.26 Other spondylosis with radiculopathy, lumbar region; M48.061 Spinal stenosis, lumbar region without neurogenic claudication; G89.29 Other chronic pain; M19.90 Unspecified osteoarthritis, unspecified site; Z98.890 Other specified postprocedural states; Z79.899 Other long term (current) drug therapy; Z88.8 Allergy status to other drugs, medicaments and biological substances